=== PATIENT | female | born 1940 | race Caucasian/White ===

== ENCOUNTER 2017-12-22 14:15 | Inpatient (IN) | payer OTHER ==
[~2017-12-22] VITALS: Ht 157.5 cm; Wt 87.3 kg
[~2017-12-22 14:15] MED LIST: DESYREL100 MG PO; DOXYCYCLINE HY100 MG PO; NEURONTIN300 MG PO; PREDNISONE50 MG PO; PROAIR HFA8.5 GM IH; SYMBICORT60 INHALAT IH; SYNTHROID75 MCG PO; VALIUM5 MG PO
[2017-12-22 15:03] LABS: BASOPHIL (%) 0.1 % (0-1); EOSINOPHIL (%) 0.6 % (0-5); EOSINOPHIL COUNT 0.1 K/uL (0-0.3); HEMATOCRIT 32.4 % (36.0-46.0); HEMOGLOBIN 9.6 G/DL (11.9-15.5); IMMATURE GRANULOCYTE (%) 0.3 % (0.0-0.7); LYMPHOCYTE (%) 6.9 % (15-42); MCHC 29.6 G/DL (30.0-36.0); MCV 77.7 FL (83-99); MONOCYTE (%) 4.7 % (3-12); MONOCYTE COUNT 0.7 K/uL (0-0.8); NEUTROPHIL (%) 87.4 % (45-76); NEUTROPHIL COUNT 12.4 K/uL (1.8-6.4); PLATELET COUNT 224 K/uL (156-360); RBC DIS.WIDTH-CV 18.7 % (11.8-14.6); RBC DIS.WIDTH-SD 51.6 % (39-53); RED BLOOD COUNT 4.17 M/uL (3.80-5.20); WHITE BLOOD COUNT 14.2 K/uL (4.1-10.2)
[2017-12-22 15:13] LABS: ALBUMIN 3.8 g/dL (3.2-4.8); CHLORIDE 103 mEq/L (99-109); POTASSIUM 4.5 mEq/L (3.7-5.4); SODIUM 137 mEq/L (136-147)
[2017-12-22 15:15] LABS: GLUCOSE 192 mg/dL (70-99)
[2017-12-22 15:16] LABS: TOTAL PROTEIN 6.9 g/dL (6.4-8.3)
[2017-12-22 15:17] LABS: TOTAL BILIRUBIN 0.6 mg/dL (0.0-1.0)
[2017-12-22 15:19] LABS: ALKALINE PHOSPHATASE 87 IU/L (3-129); CREATININE 0.7 mg/dL (0.6-1.3); GFR ESTIMATE (CALCULATED) > 59 mL/min/
[2017-12-22 15:20] LABS: UREA NITROGEN (BUN) 10 mg/dL (9-23)
[2017-12-22 15:21] LABS: AST (GOT) 16 IU/L (2-34)
[2017-12-22 15:22] LABS: ALT (GPT) 10 IU/L (3-49)
[2017-12-22 15:28] LABS: TROP-I INTERPRETATION NEGATIVE; TROPONIN-I 0.01 ng/mL (0.0-0.30)
[2017-12-22 15:53] LABS: APPEARANCE CLEAR ((CLEAR)); BILIRUBIN NEGATIVE; BLOOD NEGATIVE; COLOR YELLOW ((YELLOW)); GLUCOSE (STRIP) NEGATIVE; KETONES NEGATIVE; LEUKOCYTES NEGATIVE; NITRITE NEGATIVE; PROTEIN (STRIP) NEGATIVE; SPECIFIC GRAVITY 1.011 (1.000-1.030); UCUL ADDED? NO; UROBILINOGEN 0.2 MG/DL (0.2-1.0)
[2017-12-22 16:14] LABS: COMMENTS - BLOOD GASES C+; DEVICE NC; O2 FLOW 5 L/MIN; SITE LR
[2017-12-22 16:15] LABS: O2 SATURATION (CALCULATED) 96.9 % (95-99); PCO2 39 mm Hg (35-45); PO2 68 mm Hg (80-100); pH 7.44 (7.35-7.45)
[2017-12-22 16:16] LABS: BASE EXCESS 2.2 mEq/L (-3 to +3); BICARBONATE 26.5 mEq/L (22-26); CARBOXY HGB 2.5 % (0-5); METHEMOGLOBIN 1 % (0-1.5)
[2017-12-22] MEDS ORDERED: SEROQUEL50 MG PO (16:40)
[2017-12-22] MEDS ORDERED: ALBUTEROL2.5 MG/3 M IH (16:40)
[2017-12-22] MEDS ORDERED: SPIRIVA RESPIMAT4 GM IH (16:41)
[2017-12-22] MEDS ORDERED: MIRTAZAPINE30 MG PO (16:41)
[2017-12-22] MEDS ORDERED: PERCOCET 5/31 TABLET PO (16:41)
[2017-12-22] MEDS ORDERED: PRISTIQ ER25 MG PO (16:41)
[2017-12-22] MEDS ORDERED: CLONAZEPAM0.5 MG PO (16:41)
[2017-12-22] MEDS ORDERED: PROTONIX40 MG PO (16:42)
[2017-12-22 21:36] LABS: SERUM ETHYL ALCOHOL < 10 mg/dL
[2017-12-22 21:39] LABS: ACETAMINOPHEN (TYLENOL) < 10 mcg/mL (10-30); SALICYLATE < 5.0 MG/DL (15-30)
[2017-12-22 22:54] LABS: BENZODIAZEPINES, URINE SCREEN Negative (200 ng/mL)
[2017-12-22 23:12] VITALS: BP 129/60
[2017-12-23 00:05] VITALS: BP 129/60
[2017-12-23 04:00] VITALS: BP 130/68
[2017-12-23 05:37] LABS: BASOPHIL (%) 0.1 % (0-1); EOSINOPHIL (%) 0 % (0-5); HEMATOCRIT 28.7 % (36.0-46.0); HEMOGLOBIN 8.4 G/DL (11.9-15.5); IMMATURE GRANULOCYTE (%) 1.7 % (0.0-0.7); LYMPHOCYTE (%) 2.7 % (15-42); LYMPHOCYTE COUNT 0.5 K/uL (1.0-2.8); MCH 22.6 PG (29.0-34.0); MCHC 29.3 G/DL (30.0-36.0); MCV 77.2 FL (83-99); MONOCYTE (%) 3.5 % (3-12); MONOCYTE COUNT 0.6 K/uL (0-0.8); NEUTROPHIL COUNT 16.6 K/uL (1.8-6.4); PLATELET COUNT 185 K/uL (156-360); RBC DIS.WIDTH-CV 18.5 % (11.8-14.6); RBC DIS.WIDTH-SD 50.8 % (39-53); RED BLOOD COUNT 3.72 M/uL (3.80-5.20); WHITE BLOOD COUNT 18.1 K/uL (4.1-10.2)
[2017-12-23 05:57] LABS: CHLORIDE 101 MEQ/L (99-109); CREATININE 0.5 MG/DL (0.6-1.3); GFR ESTIMATE (CALCULATED) > 59 mL/min/; GLUCOSE 166 mg/dL (70-99); SODIUM 135 MEQ/L (136-147); UREA NITROGEN (BUN) 13 mg/dL (9-23)
[2017-12-23 08:33] VITALS: BP 94/55
[2017-12-23] MEDS ORDERED: ANAFRANIL25 M1 PO (09:50)
[2017-12-23] MEDS ORDERED: SINGULAIR10 MG PO (09:51)
[2017-12-23 12:30] VITALS: BP 114/56
[2017-12-23 16:02] VITALS: BP 119/68
[2017-12-23 19:12] VITALS: BP 133/62
[2017-12-24] VITALS (8 sets, daily range): BP systolic 130–178; BP diastolic 58–107
[2017-12-24 05:43] LABS: HEMATOCRIT 28.1 % (36.0-46.0); HEMOGLOBIN 8.2 G/DL (11.9-15.5); MCH 22.5 PG (29.0-34.0); MCHC 29.2 G/DL (30.0-36.0); PLATELET COUNT 211 K/uL (156-360); RBC DIS.WIDTH-CV 18.6 % (11.8-14.6); RBC DIS.WIDTH-SD 51.3 % (39-53); RED BLOOD COUNT 3.65 M/uL (3.80-5.20); WHITE BLOOD COUNT 18.6 K/uL (4.1-10.2)
[2017-12-24 06:01] LABS: CHLORIDE 106 MEQ/L (99-109); CREATININE 0.6 MG/DL (0.6-1.3); GFR ESTIMATE (CALCULATED) > 59 mL/min/; GLUCOSE 179 mg/dL (70-99); SODIUM 139 MEQ/L (136-147); UREA NITROGEN (BUN) 15 mg/dL (9-23)
[2017-12-24] MEDS ORDERED: REMERON30 M2 PO (22:45)
[2017-12-24] MEDS ORDERED: SEROQUEL50 MG PO (22:47)
[2017-12-25 00:01] VITALS: BP 175/107
[2017-12-25 03:31] VITALS: BP 168/98
[2017-12-25 05:45] LABS: BASOPHIL (%) 0.1 % (0-1); EOSINOPHIL (%) 0 % (0-5); HEMATOCRIT 26.6 % (36.0-46.0); HEMOGLOBIN 7.7 G/DL (11.9-15.5); IMMATURE GRANULOCYTE (%) 0.6 % (0.0-0.7); LYMPHOCYTE (%) 6.9 % (15-42); LYMPHOCYTE COUNT 0.9 K/uL (1.0-2.8); MCH 22.6 PG (29.0-34.0); MCHC 28.9 G/DL (30.0-36.0); MONOCYTE (%) 8.8 % (3-12); MONOCYTE COUNT 1.1 K/uL (0-0.8); NEUTROPHIL (%) 83.6 % (45-76); NEUTROPHIL COUNT 10.4 K/uL (1.8-6.4); PLATELET COUNT 190 K/uL (156-360); RBC DIS.WIDTH-CV 18.8 % (11.8-14.6); RBC DIS.WIDTH-SD 52.5 % (39-53); RED BLOOD COUNT 3.41 M/uL (3.80-5.20); WHITE BLOOD COUNT 12.5 K/uL (4.1-10.2)
[2017-12-25 06:29] LABS: CHLORIDE 109 MEQ/L (99-109); CREATININE 0.5 MG/DL (0.6-1.3); GFR ESTIMATE (CALCULATED) > 59 mL/min/; GLUCOSE 137 mg/dL (70-99); POTASSIUM 3.8 MEQ/L (3.7-5.4); SODIUM 139 MEQ/L (136-147); UREA NITROGEN (BUN) 14 mg/dL (9-23); VANCOMYCIN, TROUGH 10.7 MCG/ML (10-20)
[2017-12-25 08:25] LABS: IRON < 10 MCG/DL (35-150); TRANSFERRIN SATUR. 3 % (20-55)
[2017-12-25 08:29] LABS: FOLIC ACID (FOLATE) 17.8 NG/ML (5.0-22.0)
[2017-12-25 08:47] VITALS: BP 145/81
[2017-12-25 08:58] LABS: FERRITIN 39 NG/ML (10-291)
[2017-12-25 11:37] VITALS: BP 143/85
[2017-12-25 15:59] VITALS: BP 150/73
[2017-12-25 19:51] VITALS: BP 142/77
[2017-12-26 00:20] VITALS: BP 140/73
[2017-12-26 04:42] VITALS: BP 127/63
[2017-12-26 07:35] VITALS: BP 117/67
[2017-12-26 11:41] VITALS: BP 132/74
[2017-12-26 16:11] VITALS: BP 144/67
[2017-12-26 19:48] VITALS: BP 150/81
[2017-12-27 00:30] VITALS: BP 147/80
[2017-12-27 06:16] LABS: CHLORIDE 106 MEQ/L (99-109); CREATININE 0.5 MG/DL (0.6-1.3); GFR ESTIMATE (CALCULATED) > 59 mL/min/; SODIUM 139 MEQ/L (136-147); UREA NITROGEN (BUN) 17 mg/dL (9-23)
[2017-12-27 06:17] LABS: GLUCOSE 81 mg/dL (70-99)
[2017-12-27 06:50] LABS: HEMATOCRIT 29.4 % (36.0-46.0); HEMOGLOBIN 8.6 G/DL (11.9-15.5); MCH 22.9 PG (29.0-34.0); MCHC 29.3 G/DL (30.0-36.0); MCV 78.2 FL (83-99); NRBC (%) 0.9 /100 WBC (0-0); RBC DIS.WIDTH-CV 18.6 % (11.8-14.6); RBC DIS.WIDTH-SD 52.1 % (39-53); RED BLOOD COUNT 3.76 M/uL (3.80-5.20); WHITE BLOOD COUNT 12.9 K/uL (4.1-10.2)
[2017-12-27 07:36] VITALS: BP 137/63
[2017-12-27 07:43] LABS: PLAT.SUFFICIENCY ADEQUATE; PLATELET COUNT 206 K/uL (156-360)
[2017-12-27] MEDS ORDERED: SPIRIVA RESPIMAT4 GM IH (11:29)
[2017-12-27] MEDS ORDERED: DOXYCYCLINE HY100 M3 PO (11:29)
[2017-12-27] MEDS ORDERED: ALBUTEROL2.5 MG/3 M IH (11:29)
[2017-12-27] MEDS ORDERED: REMERON30 M2 PO (11:30)
[2017-12-27] MEDS ORDERED: SYMBICORT60 INHALAT IH (11:31)
[2017-12-27] MEDS ORDERED: SYNTHROID75 MCG PO (11:31)
[2017-12-27] MEDS ORDERED: PROTONIX40 MG PO (11:31)
[2017-12-27] MEDS ORDERED: MUCINEX600 MG PO (11:32)
[2017-12-27] MEDS ORDERED: PREDNISONE10 MG PO (11:32)
[2017-12-27] MEDS ORDERED: PERCOCET 5/31 TABLET PO (11:33)
[2017-12-27] MEDS ORDERED: ALPRAZOLAM0.25 M2 PO (11:33)
== END 2017-12-27 12:56 | disposition home or self-care (01) | DRG 871 ==
LOC: EME 14:15 → EDOF 20:51 → 4EAST 20:51 → ENRESERV 20:54 → 4EAST 22:55 → ENRESERV 12-25 16:39 → 5SOUTH 12-25 19:30 → ENPENDDIS 12-27 11:37 → 5SOUTH 12-27 12:56
PROVIDERS: Emergency Medicine; Family Medicine; Internal Medicine
PROC: 5A09357 Assistance with Respiratory Ventilation, Less than 24 Consecutive Hours, Continuous Positive Airway Pressure (ICD-10-PCS; principal; 2017-12-22)
DX: A41.9 Sepsis, unspecified organism (principal); J96.21 Acute and chronic respiratory failure with hypoxia; J15.211 Pneumonia due to Methicillin susceptible Staphylococcus aureus; Y95 Nosocomial condition; J44.0 Chronic obstructive pulmonary disease with (acute) lower respiratory infection; J20.9 Acute bronchitis, unspecified; J44.1 Chronic obstructive pulmonary disease with (acute) exacerbation; G93.40 Encephalopathy, unspecified; Z99.81 Dependence on supplemental oxygen; I11.0 Hypertensive heart disease with heart failure; I50.9 Heart failure, unspecified; D50.9 Iron deficiency anemia, unspecified; G47.00 Insomnia, unspecified; F41.0 Panic disorder [episodic paroxysmal anxiety]; F41.1 Generalized anxiety disorder; F32.9 Major depressive disorder, single episode, unspecified; F42.9 Obsessive-compulsive disorder, unspecified; G89.29 Other chronic pain; M54.30 Sciatica, unspecified side; M54.9 Dorsalgia, unspecified; K21.9 Gastro-esophageal reflux disease without esophagitis; E03.9 Hypothyroidism, unspecified; F17.210 Nicotine dependence, cigarettes, uncomplicated; Z66 Do not resuscitate; E66.9 Obesity, unspecified; Z68.35 Body mass index [BMI] 35.0-35.9, adult; Z87.01 Personal history of pneumonia (recurrent); Z96.653 Presence of artificial knee joint, bilateral
CPT/HCPCS: 36600; 70450; 71045; 71250; 71275; 80048; 80053; 80202; 80306 90; 81003; 82140; 82272; 82607; 82728; 82746; 83540; 83605; 83880; 84443; 84466; 84484; 85025; 85027; 87040; 87070; 87077; 87147; 87186; 87205; 93005; 93306; 94002; 94640; 94669; 94760; 94799; 99281; 99285; C9113; G0480; J0456; J0692; J0696; J1630; J1650; J1756; J1885; J1940; J2060; J2920; J2930; J3370; J7030; J7050; J7512